=== PATIENT | female | born 1955 | race American Indian/Alaskan Native ===

== ENCOUNTER 2018-11-18 10:29 | Outpatient (CLI) | payer MEDICAID | END 2018-11-18 23:59 | disposition home or self-care (01) | LOC: SSTAY O 10:29 | PROVIDERS: ATTEND Nurse Practitioner | DX: Z46.82 Encounter for fitting and adjustment of non-vascular catheter (principal) | CPT/HCPCS: 36569; 76937 ==

== ENCOUNTER 2018-12-24 15:47 | Inpatient (IN) | payer MEDICAID ==
[~2018-12-24] VITALS: Ht 160 cm; Wt 73.3 kg
[2018-12-24 16:41] LABS: BASOPHILS # (AUTO) 0.1 X10'3 (0-0.2); BASOPHILS % (AUTO) 0.7 % (0-1); EOSINOPHILS # (AUTO) 0.6 X10'3 (0-0.9); EOSINOPHILS % (AUTO) 3.4 % (0-6); HEMATOCRIT 27.1 % (35.0-45.0); HEMOGLOBIN 9.3 g/dl (12.0-16.0); LYMPHOCYTES # (AUTO) 2.6 X10'3 (1.1-4.8); LYMPHOCYTES % (AUTO) 15.1 % (21-51); MEAN CORPUSCULAR HEMOGLOBIN 27.8 PG (27.0-31.0); MEAN CORPUSCULAR HGB CONC 34.2 g/dL (33.0-36.5); MEAN CORPUSCULAR VOLUME 81.4 FL (78-98); MEAN PLATELET VOLUME 7.2 FL (7.4-10.4); MONOCYTES # (AUTO) 1.2 X10'3 (0-0.9); NEUTROPHILS # (AUTO) 12.6 X10'3 (1.8-7.7); NEUTROPHILS % (AUTO) 73.8 % (42-75); PLATELET COUNT 520 X10'3 (140-440); RED BLOOD COUNT 3.33 X10'6 (4.20-5.60); RED CELL DISTRIBUTION WIDTH 14.8 % (11.5-14.5)
[2018-12-24 16:51] LABS: ALANINE AMINOTRANSFERASE 15 U/L (12-78); ALBUMIN/GLOBULIN RATIO 0.7 (1.1-1.5); ALKALINE PHOSPHATASE 135 IU/L (46-116); ANION GAP 15 (8-16); ASPARTATE AMINO TRANSFERASE 11 U/L (10-37); BILIRUBIN,TOTAL 0.6 MG/DL (0.1-1.0); BLOOD UREA NITROGEN 50 MG/DL (7-18); BUN/CREATININE RATIO 24.6 (6.6-38.0); CALCIUM 8.8 MG/DL (8.5-10.1); CHLORIDE 104 MMOL/L (99-107); CREATININE 2.03 MG/DL (0.40-0.90); GLUCOSE 235 MG/DL (70-104); PARTIAL THROMBOPLASTIN TIME 27 SECONDS (22-32); POTASSIUM 4.5 MMOL/L (3.5-5.1); SODIUM 137 MMOL/L (135-145); TOTAL CARBON DIOXIDE 18.5 MMOL/L (24-32); TOTAL PROTEIN 7.1 G/DL (6.4-8.2); eGFR 25 ML/MIN
[2018-12-24 17:02] LABS: C-REACTIVE PROTEIN 2.08 MG/DL (0.0-0.5); MAGNESIUM 1.7 MG/DL (1.5-2.4)
[2018-12-24 17:10] LABS: VANCOMYCIN,TROUGH 40.2 UG/ML (6.0-14.0)
[2018-12-24] MEDS ORDERED: piperacillin/tazo 3.375gm/50ml 50 ML IV ONE (17:10)
[2018-12-24 17:40] LABS: CLARITY,URINE CLEAR (Clear); COLOR,URINE YELLOW (Yellow); GLUCOSE, URINE 100 mg/dl (Neg); KETONES,URINE NEGATIVE (Neg); LEUKOCYTE ESTERASE ,URINE NEGATIVE (Neg); NITRITES, URINE NEGATIVE (Neg); OCCULT BLOOD,URINE NEGATIVE (Neg); PH,URINE 5.5 (4.8-8.0); PROTEIN,URINE 30 mg/dl (Neg); UROBILINOGEN,URINE 0.2 E.U/dL (0.2-1.0)
[2018-12-24 17:41] LABS: UA COLLECTION TYPE CLN CATCH MIDSTREAM
[2018-12-24] MEDS ORDERED: ANAS1TAB PO (17:42)
[2018-12-24] MEDS ORDERED: LISI-600 PO (17:42)
[2018-12-24] MEDS ORDERED: INSU100V13 SQ (17:42)
[2018-12-24] MEDS ORDERED: INSU100V9 SQ (17:42)
[2018-12-24] MEDS ORDERED: NAPR220T67 PO (17:42)
[2018-12-24] MEDS ORDERED: AMLO10TA PO (17:42)
[2018-12-24] MEDS ORDERED: ATOR40TA72 PO (17:42)
[2018-12-24] MEDS ORDERED: CHLO25TA3 PO (17:42)
[2018-12-24] MEDS ORDERED: VANCOMYCIN (17:43)
[2018-12-24 17:48] LABS: AMORPHOUS URATES 1+
[2018-12-24 17:49] LABS: MUCUS STRANDS FEW /LPF (Neg); SQUAMOUS EPITHELIAL CELL,UR FEW /LPF (FEW)
[2018-12-24 17:52] LABS: BACTERIA,URINE FEW /HPF (Neg); RBC,URINE 0-2 /HPF (0-2); WBC,URINE 0-4 /HPF (0-4)
[2018-12-24] MEDS ORDERED: heparin 10,000 units/1 ML INJ IV ONE ×2 (18:00→18:05)
[2018-12-24] MEDS ORDERED: heparin 10,000 units/1 ML INJ IV PRN (18:00)
[2018-12-24] MEDS ORDERED: acetaminophen 650mg rectal suppository RC PRN (18:10)
[2018-12-24] MEDS: K and/or MAG REPLACEMENT MC SCH (18:10)
[2018-12-24] MEDS ORDERED: mag hydrox/Alum hydrox/simeth 30ml oral suspension PO PRN (18:10)
[2018-12-24] MEDS ORDERED: morphine 2 MG/ML inj. syringe IV PRN ×2 (18:10)
[2018-12-24] MEDS ORDERED: magnesium hydroxide 30ml (MOM) UD suspension PO PRN (18:10)
[2018-12-24] MEDS ORDERED: glucagon, human recombinant 1mg kit SUBCUT PRN (18:10)
[2018-12-24] MEDS ORDERED: dextrose 50%-water 50ml dispensing syringe IV PRN ×2 (18:10)
[2018-12-24] MEDS ORDERED: magnesium 4gm in 100ml NS 100 ML IV PRN (18:10)
[2018-12-24] MEDS ORDERED: magnesium 2GM in 50ml NS 50 ML IV PRN (18:10)
[2018-12-24] MEDS ORDERED: dextrose ORAL solution 15 GM/59 ML bottle PO PRN ×2 (18:10)
[2018-12-24] MEDS ORDERED: diphenhydrAMINE 50 mg/ml inj IV PRN (18:10)
[2018-12-24] MEDS ORDERED: potassium Cl 20 mEq SR tablet PO PRN ×2 (18:10)
[2018-12-24] MEDS ORDERED: magnesium Cl slow-release 64mg tablet PO PRN (18:10)
[2018-12-24] MEDS ORDERED: metoclopramide 5 mg/ml inj IV PRN (18:10)
[2018-12-24] MEDS ORDERED: bisacodyl 10mg suppository rectal RC PRN (18:10)
[2018-12-24] MEDS ORDERED: potassium CL 10mEq/100ml bag 100 ML IV PRN ×2 (18:10)
[2018-12-24] MEDS ORDERED: acetaminophen 325mg tablet PO PRN ×2 (18:10)
[2018-12-24] MEDS ORDERED: MESSAGE TO PHARMACY PO ONE (18:10)
[2018-12-24] MEDS: cefepime 2g/NS 100ml ADVANTAGE 100 ML IV SCH ×2 (18:43→21:12)
[2018-12-24] MEDS ORDERED: VANC1PLA9 IV (18:50)
[2018-12-24] MEDS: heparin 25,000 UNIT/250ml bag 250 ML IV SCH (19:09)
[2018-12-24] MEDS: sodium bicarbonate inj. 100 ML in sodium chloride 0.45% 1,000 ML IV SCH (19:46)
[2018-12-24 20:01] LABS: FERRITIN 163 NG/ML (8-252)
[2018-12-24 20:29] LABS: % IRON SATURATION 9 % (11-46); IRON 18 UG/DL (49-151); TOTAL IRON BINDING CAPACITY 199 UG/DL (259-388)
--- NOTE | 2018-12-24 20:49 | NUR ---
Patient in room . I have received report from JACQUI Sanchez RN and had the opportunity to ask questions and assume patient care.
[2018-12-24] MEDS: insulin glargine (Lantus) pen - multi-dose SQ SCH (21:00)
[2018-12-24] MEDS: HYDROcodone/acetaminophen 5mg/325mg tablet PO PRN (21:46)
[2018-12-24 22:00] VITALS: BP 167/72
[2018-12-24 22:27] LABS: PARTIAL THROMBOPLASTIN TIME 74 SECONDS (22-32)
[2018-12-25] VITALS (7 sets, daily range): BP systolic 131–183; BP diastolic 55–87
[2018-12-25] MEDS: HYDROcodone/acetaminophen 10/325mg tab PO PRN ×2 (01:46→17:33)
[2018-12-25] MEDS: temazepam 15mg capsule PO PRN (01:46)
[2018-12-25] MEDS: sodium bicarbonate inj. 100 ML in sodium chloride 0.45% 1,000 ML IV SCH ×2 (05:55→16:35)
--- NOTE | 2018-12-25 06:00 | NUR ---
Patient in room PCU 3012. I have received report from COLBY CRAWLEY and had the opportunity to ask questions and assume patient care.
--- NOTE | 2018-12-25 06:57 | NUR ---
Problems reprioritized. Patient report given, questions answered & plan of care reviewed with MISBAH Barrett.
[2018-12-25 07:03] LABS: BASOPHILS # (AUTO) 0.2 X10'3 (0-0.2); BASOPHILS % (AUTO) 1.3 % (0-1); EOSINOPHILS # (AUTO) 0.7 X10'3 (0-0.9); EOSINOPHILS % (AUTO) 5.1 % (0-6); HEMATOCRIT 24.8 % (35.0-45.0); HEMOGLOBIN 8.6 g/dl (12.0-16.0); LYMPHOCYTES # (AUTO) 2.7 X10'3 (1.1-4.8); LYMPHOCYTES % (AUTO) 18.9 % (21-51); MEAN CORPUSCULAR HEMOGLOBIN 27.5 PG (27.0-31.0); MEAN CORPUSCULAR HGB CONC 34.5 g/dL (33.0-36.5); MEAN CORPUSCULAR VOLUME 79.7 FL (78-98); MEAN PLATELET VOLUME 7.2 FL (7.4-10.4); MONOCYTES # (AUTO) 1.4 X10'3 (0-0.9); MONOCYTES % (AUTO) 9.8 % (2-12); NEUTROPHILS # (AUTO) 9.3 X10'3 (1.8-7.7); NEUTROPHILS % (AUTO) 64.9 % (42-75); PLATELET COUNT 494 X10'3 (140-440); RED BLOOD COUNT 3.12 X10'6 (4.20-5.60); RED CELL DISTRIBUTION WIDTH 14.9 % (11.5-14.5); WHITE BLOOD COUNT 14.3 X10'3 (4.5-11.0)
[2018-12-25 07:28] LABS: ALANINE AMINOTRANSFERASE 13 U/L (12-78); ALBUMIN 2.5 G/DL (3.4-5.0); ALBUMIN/GLOBULIN RATIO 0.6 (1.1-1.5); ALKALINE PHOSPHATASE 108 IU/L (46-116); ANION GAP 12 (8-16); ASPARTATE AMINO TRANSFERASE 10 U/L (10-37); BILIRUBIN,TOTAL 0.4 MG/DL (0.1-1.0); BLOOD UREA NITROGEN 42 MG/DL (7-18); BUN/CREATININE RATIO 22.6 (6.6-38.0); CALCIUM 8.2 MG/DL (8.5-10.1); CHLORIDE 108 MMOL/L (99-107); CHOL/HDL RATIO 3.4 (0.00-4.99); CHOLESTEROL 92 MG/DL (0-200); CREATININE 1.86 MG/DL (0.40-0.90); GLUCOSE 93 MG/DL (70-104); HDL CHOLESTEROL 27 MG/DL (35-60); LDL CHOLESTEROL 53 MG/DL (50-100); MAGNESIUM 1.6 MG/DL (1.5-2.4); PHOSPHORUS 3.4 MG/DL (2.3-4.5); POTASSIUM 3.9 MMOL/L (3.5-5.1); SODIUM 141 MMOL/L (135-145); TOTAL CARBON DIOXIDE 21.3 MMOL/L (24-32); TOTAL PROTEIN 6.5 G/DL (6.4-8.2); TRIGLYCERIDES 89 MG/DL (20-135); eGFR 27 ML/MIN
[2018-12-25] MEDS: K and/or MAG REPLACEMENT MC SCH (08:00)
[2018-12-25] MEDS ORDERED: chlorthalidone 25mg tablet PO SCH (08:00)
[2018-12-25] MEDS: atorvastatin 20mg tablet PO SCH (09:27)
[2018-12-25] MEDS: anastrozole 1 MG tablet PO SCH (09:28)
[2018-12-25] MEDS: amLODIPine 5mg tablet PO SCH (09:28)
[2018-12-25] MEDS: lisinopril 20mg tablet PO SCH (09:28)
[2018-12-25] MEDS: heparin 25,000 UNIT/250ml bag 250 ML IV SCH ×4 (10:40→22:09)
[2018-12-25] MEDS: cefepime 2g/NS 100ml ADVANTAGE 100 ML IV SCH ×2 (11:10→19:26)
[2018-12-25] MEDS: HYDROcodone/acetaminophen 5mg/325mg tablet PO PRN (11:18)
[2018-12-25] MEDS: vancomycin/NS 1 GM ADD-VANTAGE 250 ML X 1 DOSE IV SCH (11:57)
--- NOTE | 2018-12-25 14:08 | NUR ---
PAGER ID: [phone] MESSAGE: [id number], Arnold Rodriguez Phys. therapy wants an order for ortho off loading shoe to keep weight off right foot. May I put one in? Brandi [facility] [id number]
--- NOTE | 2018-12-25 14:48 | NUR ---
DM Consult: A1C 10.2. Pt admit w/ sepsis, R great toe osteomyelitis. Pt seen by RD for written/verbal DM ed w/ RD contact information provided. RD encouraged attending CDE Course. Pt reports ran out of insulin past few days since forgot to order and GLU at home ranges 260-300 if forgets to take short-acting. Pt declined verbal ed but was open to brief verbal review by RD. Pt was agreeable to double meats/eggs TIDWM; dietary notified. [facility] 12/24. Will continue to monitor. Rec: 1. continue carb controlled diet; double proteins TIDWM 2. wt per rx Addendum: 12/25/18 at [address] Amended: Links added.
--- NOTE | 2018-12-25 18:00 | NUR ---
Patient in room PCU 3012. I have received report from Nena CRAWLEY and had the opportunity to ask questions and assume patient care.
[2018-12-25] MEDS: insulin Lispro (HumaLOG) vial - multi-dose SQ SCH ×2 (19:24→21:24)
[2018-12-25] MEDS: lactobacillus rhamnosus 10,000 MMU CELLS/CAPSULE PO SCH (19:26)
[2018-12-25] MEDS ORDERED: atenolol 50mg tablet PO ONE (21:15)
[2018-12-25] MEDS: insulin glargine (Lantus) pen - multi-dose SQ SCH (21:25)
[2018-12-25] MEDS ORDERED: hydrALAZINE 20mg/ml inj. IV ONE (23:20)
--- NOTE | 2018-12-25 23:36 | NUR ---
183/74 (110) MD Benito notified, Hydralazine 5mg IV ONCE given. Patient is comfortable in bed and not symptomatic, will continue to monitor.
[2018-12-26 00:26] VITALS: BP 162/70
[2018-12-26] MEDS: HYDROcodone/acetaminophen 5mg/325mg tablet PO PRN ×4 (03:16→20:27)
--- NOTE | 2018-12-26 03:50 | NUR ---
PAIN Patient very stoic about pain, and very cautious about taking any pain medications. I talked to the patient about her pain options and will continue to monitor her right foot. [place] 5 was given once on my shift.
[2018-12-26 06:00] VITALS: BP 163/66
--- NOTE | 2018-12-26 06:00 | NUR ---
Patient in room PCU 3012. I have received report from MISBAH Stanley and had the opportunity to ask questions and assume patient care.
[2018-12-26 06:16] LABS: BASOPHILS # (AUTO) 0.2 X10'3 (0-0.2); BASOPHILS % (AUTO) 1.3 % (0-1); EOSINOPHILS # (AUTO) 0.4 X10'3 (0-0.9); EOSINOPHILS % (AUTO) 2.8 % (0-6); HEMATOCRIT 25.2 % (35.0-45.0); HEMOGLOBIN 8.7 g/dl (12.0-16.0); LYMPHOCYTES # (AUTO) 2.2 X10'3 (1.1-4.8); LYMPHOCYTES % (AUTO) 16.5 % (21-51); MEAN CORPUSCULAR HGB CONC 34.7 g/dL (33.0-36.5); MEAN CORPUSCULAR VOLUME 80.8 FL (78-98); MEAN PLATELET VOLUME 7.4 FL (7.4-10.4); MONOCYTES % (AUTO) 7.4 % (2-12); NEUTROPHILS # (AUTO) 9.6 X10'3 (1.8-7.7); PLATELET COUNT 495 X10'3 (140-440); RED BLOOD COUNT 3.12 X10'6 (4.20-5.60); RED CELL DISTRIBUTION WIDTH 14.9 % (11.5-14.5); WHITE BLOOD COUNT 13.4 X10'3 (4.5-11.0)
[2018-12-26 06:49] LABS: ALANINE AMINOTRANSFERASE 14 U/L (12-78); ALBUMIN 2.5 G/DL (3.4-5.0); ALBUMIN/GLOBULIN RATIO 0.6 (1.1-1.5); ALKALINE PHOSPHATASE 104 IU/L (46-116); ANION GAP 12 (8-16); ASPARTATE AMINO TRANSFERASE 11 U/L (10-37); BILIRUBIN,TOTAL 0.4 MG/DL (0.1-1.0); BLOOD UREA NITROGEN 31 MG/DL (7-18); BUN/CREATININE RATIO 18.9 (6.6-38.0); CALCIUM 8.4 MG/DL (8.5-10.1); CHLORIDE 106 MMOL/L (99-107); CREATININE 1.64 MG/DL (0.40-0.90); GLUCOSE 197 MG/DL (70-104); MAGNESIUM 1.6 MG/DL (1.5-2.4); PHOSPHORUS 3.1 MG/DL (2.3-4.5); POTASSIUM 3.5 MMOL/L (3.5-5.1); SODIUM 141 MMOL/L (135-145); TOTAL CARBON DIOXIDE 23.4 MMOL/L (24-32); TOTAL PROTEIN 6.7 G/DL (6.4-8.2); eGFR 32 ML/MIN
[2018-12-26] MEDS: K and/or MAG REPLACEMENT MC SCH (08:00)
[2018-12-26] MEDS: lactobacillus rhamnosus 10,000 MMU CELLS/CAPSULE PO SCH ×2 (08:09→19:34)
[2018-12-26] MEDS: cefepime 2g/NS 100ml ADVANTAGE 100 ML IV SCH ×2 (08:10→19:34)
[2018-12-26] MEDS: anastrozole 1 MG tablet PO SCH (08:17)
[2018-12-26] MEDS: atorvastatin 20mg tablet PO SCH (08:18)
[2018-12-26] MEDS: amLODIPine 5mg tablet PO SCH (08:19)
[2018-12-26] MEDS: lisinopril 20mg tablet PO SCH (08:20)
[2018-12-26] MEDS: atenolol 50mg tablet PO SCH (08:20)
[2018-12-26] MEDS: insulin Lispro (HumaLOG) vial - multi-dose SQ SCH ×3 (09:56→18:55)
[2018-12-26] MEDS: ondansetron/PF 4mg/2ml inj IV PRN (09:59)
[2018-12-26] MEDS: vancomycin/NS 1 GM ADD-VANTAGE 250 ML X 1 DOSE IV SCH (10:00)
[2018-12-26 11:00] VITALS: BP 144/62
[2018-12-26 15:00] VITALS: BP 117/70
[2018-12-26 16:51] LABS: PARTIAL THROMBOPLASTIN TIME 63 SECONDS (22-32)
--- NOTE | 2018-12-26 18:00 | NUR ---
Problems reprioritized. Patient report given, questions answered & plan of care reviewed with Alicia CRAWLEY.
--- NOTE | 2018-12-26 18:17 | NUR ---
Problems reprioritized. Patient report given, questions answered & plan of care reviewed with MISBAH Stanley.
[2018-12-26 19:00] VITALS: BP 158/61
[2018-12-26] MEDS ORDERED: sodium bicarbonate inj. 100 ML in sodium chloride 0.45% 1,000 ML IV SCH (19:00)
[2018-12-26] MEDS: normal saline 1000ml 1,000 ML IV SCH (22:36)
[2018-12-26] MEDS: insulin glargine (Lantus) pen - multi-dose SQ SCH (22:42)
[2018-12-26] MEDS: heparin 25,000 UNIT/250ml bag 250 ML IV SCH (22:59)
[2018-12-26 23:00] VITALS: BP 152/85
[2018-12-26] MEDS: diphenhydrAMINE 25mg capsule PO PRN (23:07)
[2018-12-27] VITALS (8 sets, daily range): BP systolic 137–180; BP diastolic 50–74
[2018-12-27] MEDS: HYDROcodone/acetaminophen 5mg/325mg tablet PO PRN ×2 (03:44→08:18)
[2018-12-27 06:04] LABS: BASOPHILS % (AUTO) 0.2 % (0-1); EOSINOPHILS # (AUTO) 0.6 X10'3 (0-0.9); EOSINOPHILS % (AUTO) 4.3 % (0-6); HEMATOCRIT 24.4 % (35.0-45.0); HEMOGLOBIN 8.3 g/dl (12.0-16.0); LYMPHOCYTES # (AUTO) 2.7 X10'3 (1.1-4.8); LYMPHOCYTES % (AUTO) 20.5 % (21-51); MEAN CORPUSCULAR HEMOGLOBIN 27.6 PG (27.0-31.0); MEAN CORPUSCULAR HGB CONC 34.1 g/dL (33.0-36.5); MEAN CORPUSCULAR VOLUME 80.7 FL (78-98); MEAN PLATELET VOLUME 7.6 FL (7.4-10.4); MONOCYTES # (AUTO) 1.1 X10'3 (0-0.9); MONOCYTES % (AUTO) 8.3 % (2-12); NEUTROPHILS # (AUTO) 8.7 X10'3 (1.8-7.7); NEUTROPHILS % (AUTO) 66.7 % (42-75); PLATELET COUNT 480 X10'3 (140-440); RED BLOOD COUNT 3.02 X10'6 (4.20-5.60); RED CELL DISTRIBUTION WIDTH 14.6 % (11.5-14.5)
--- NOTE | 2018-12-27 06:19 | NUR ---
Patient in room PCU 3012. I have received report from MISBAH Stanley and had the opportunity to ask questions and assume patient care. Pt sleeping. Heparin drip assessed. Will continue to monitor.
[2018-12-27 06:20] LABS: ALANINE AMINOTRANSFERASE 14 U/L (12-78); ALBUMIN 2.3 G/DL (3.4-5.0); ALBUMIN/GLOBULIN RATIO 0.6 (1.1-1.5); ALKALINE PHOSPHATASE 99 IU/L (46-116); ANION GAP 11 (8-16); ASPARTATE AMINO TRANSFERASE 11 U/L (10-37); BILIRUBIN,TOTAL 0.3 MG/DL (0.1-1.0); BLOOD UREA NITROGEN 27 MG/DL (7-18); CHLORIDE 106 MMOL/L (99-107); CREATININE 1.69 MG/DL (0.40-0.90); GLUCOSE 228 MG/DL (70-104); MAGNESIUM 1.6 MG/DL (1.5-2.4); PHOSPHORUS 2.4 MG/DL (2.3-4.5); POTASSIUM 3.4 MMOL/L (3.5-5.1); SODIUM 140 MMOL/L (135-145); TOTAL CARBON DIOXIDE 22.7 MMOL/L (24-32); TOTAL PROTEIN 6.4 G/DL (6.4-8.2); eGFR 30 ML/MIN
--- NOTE | 2018-12-27 06:45 | NUR ---
Problems reprioritized. Patient report given, questions answered & plan of care reviewed with Saloni RN.
[2018-12-27] MEDS: cefepime 2g/NS 100ml ADVANTAGE 100 ML IV SCH ×2 (08:13→20:14)
[2018-12-27] MEDS: normal saline 1000ml 1,000 ML IV SCH ×2 (08:13→17:50)
[2018-12-27] MEDS: lactobacillus rhamnosus 10,000 MMU CELLS/CAPSULE PO SCH ×2 (08:14→20:13)
[2018-12-27] MEDS: anastrozole 1 MG tablet PO SCH (08:14)
[2018-12-27] MEDS: atenolol 50mg tablet PO SCH (08:14)
[2018-12-27] MEDS: atorvastatin 20mg tablet PO SCH (08:15)
[2018-12-27] MEDS: lisinopril 20mg tablet PO SCH (08:15)
[2018-12-27] MEDS: K and/or MAG REPLACEMENT MC SCH (08:15)
[2018-12-27] MEDS: amLODIPine 5mg tablet PO SCH (08:15)
[2018-12-27] MEDS: insulin Lispro (HumaLOG) vial - multi-dose SQ SCH (08:50)
[2018-12-27] MEDS ORDERED: VANCOMYCIN LEVEL IV ONE (09:30)
[2018-12-27] MEDS: vancomycin/NS 1 GM ADD-VANTAGE 250 ML X 1 DOSE IV SCH (10:47)
--- NOTE | 2018-12-27 11:16 | NUR ---
Sent to Dr Garcia PAGER ID: [phone] MESSAGE: RE: Michael Emi [id number]. CRITICAL VALUE: Vanco trough 22.7. Stopped infusion. Please advise. -Saloni [phone]
--- NOTE | 2018-12-27 11:56 | NUR ---
Wrong number on board. Previous page did not send to Dr Garcia. Resent to Dr Garcia: PAGER ID: [phone] MESSAGE: RE: Emi Rodriguez [id number]. CRITICAL VALUE: Vanco trough 22.7. Stopped infusion. Please advise. Other questions as well. -Saloni [phone]
[2018-12-27] MEDS: HYDROcodone/acetaminophen 10/325mg tab PO PRN (12:45)
[2018-12-27] MEDS ORDERED: normal saline 1000ml 1,000 ML IV SCH (15:02)
[2018-12-27] MEDS ORDERED: LIDOcaine 1%/PF 5ML 10 MG/ML VIAL SQ ONE (15:05)
[2018-12-27] MEDS ORDERED: midazolam 2 mg/2 ml injection IV PRN (15:05)
[2018-12-27] MEDS ORDERED: fentaNYL/PF 50MCG/1 ML 2ML syringe IV PRN (15:05)
[2018-12-27] MEDS ORDERED: heparin 1,000 UNITS/NS 500ml 500 ML ONE ×2 (15:21→17:06)
[2018-12-27] MEDS ORDERED: midazolam 2 mg/2 ml injection ONE ×2 (15:21→17:05)
[2018-12-27] MEDS ORDERED: fentaNYL/PF 50MCG/1 ML 2ML syringe ONE ×2 (15:21→17:05)
[2018-12-27] MEDS ORDERED: iohexol 300mg/ml 100ml inj. ONE (15:21)
[2018-12-27] MEDS ORDERED: LIDOcaine 1%/PF 5ML 10 MG/ML VIAL ONE (15:21)
[2018-12-27] MEDS ORDERED: hydrALAZINE 20mg/ml inj. IV ONE (16:48)
--- NOTE | 2018-12-27 18:48 | NUR ---
I have received report from Keerthi CRAWLEY in IR and had the opportunity to ask questions and awaiting patient arrival to unit.
--- NOTE | 2018-12-27 19:00 | NUR ---
PT arrived to unit via ICU bed. PT is a/o. VSS, On RA and tolerating well, O2 sat >95%. Sheath to LT groin, site is CDI with no signs of hematoma. Sheath is transduced to pressure tubing and line has been zeroed. PT has PICC to ARASH and 20g PIV to LLA. NS and Heparin gtt infusing to PICC. PT has bilat doppler dorsalis pedis and post tibial pulses. Bilat LE are warm. Bed is locked and low. Call light is within reach. Will continue to monitor.
[2018-12-27] MEDS: ondansetron/PF 4mg/2ml inj IV PRN (19:32)
--- NOTE | 2018-12-27 19:40 | NUR ---
PT has an episode of emesis. PRN Zofran given. Will continue to monitor.
[2018-12-27] MEDS: heparin 25,000 UNIT/250ml bag 250 ML IV SCH (21:43)
[2018-12-27] MEDS: insulin glargine (Lantus) pen - multi-dose SQ SCH (21:48)
--- NOTE | 2018-12-27 23:00 | NUR ---
PT resting with no s/s of distress noted at this time. VSS. Bed is locked and low. Call light is within reach. Will continue to monitor.
[2018-12-28] VITALS (19 sets, daily range): BP systolic 136–169; BP diastolic 47–70
[2018-12-28] MEDS: normal saline 1000ml 1,000 ML IV SCH ×3 (00:25→22:32)
[2018-12-28] MEDS: temazepam 15mg capsule PO PRN ×2 (00:31→21:59)
[2018-12-28 01:56] LABS: BASOPHILS # (AUTO) 0.2 X10'3 (0-0.2); BASOPHILS % (AUTO) 1.3 % (0-1); EOSINOPHILS # (AUTO) 0.2 X10'3 (0-0.9); EOSINOPHILS % (AUTO) 1.5 % (0-6); LYMPHOCYTES # (AUTO) 1.8 X10'3 (1.1-4.8); LYMPHOCYTES % (AUTO) 14.9 % (21-51); MEAN CORPUSCULAR HEMOGLOBIN 27.2 PG (27.0-31.0); MEAN CORPUSCULAR HGB CONC 33.5 g/dL (33.0-36.5); MEAN CORPUSCULAR VOLUME 81.1 FL (78-98); MEAN PLATELET VOLUME 7.2 FL (7.4-10.4); MONOCYTES # (AUTO) 0.9 X10'3 (0-0.9); MONOCYTES % (AUTO) 7.2 % (2-12); NEUTROPHILS # (AUTO) 9.3 X10'3 (1.8-7.7); NEUTROPHILS % (AUTO) 75.1 % (42-75); PLATELET COUNT 468 X10'3 (140-440); RED BLOOD COUNT 2.96 X10'6 (4.20-5.60); RED CELL DISTRIBUTION WIDTH 14.6 % (11.5-14.5); WHITE BLOOD COUNT 12.4 X10'3 (4.5-11.0)
[2018-12-28 02:06] LABS: ALANINE AMINOTRANSFERASE 14 U/L (12-78); ALBUMIN 2.2 G/DL (3.4-5.0); ALBUMIN/GLOBULIN RATIO 0.6 (1.1-1.5); ALKALINE PHOSPHATASE 92 IU/L (46-116); ANION GAP 13 (8-16); ASPARTATE AMINO TRANSFERASE 11 U/L (10-37); BILIRUBIN,TOTAL 0.3 MG/DL (0.1-1.0); BLOOD UREA NITROGEN 30 MG/DL (7-18); CALCIUM 7.5 MG/DL (8.5-10.1); CHLORIDE 107 MMOL/L (99-107); CREATININE 1.58 MG/DL (0.40-0.90); GLUCOSE 225 MG/DL (70-104); MAGNESIUM 1.6 MG/DL (1.5-2.4); PHOSPHORUS 2.6 MG/DL (2.3-4.5); POTASSIUM 3.6 MMOL/L (3.5-5.1); SODIUM 140 MMOL/L (135-145); TOTAL CARBON DIOXIDE 19.8 MMOL/L (24-32); TOTAL PROTEIN 6.1 G/DL (6.4-8.2); eGFR 33 ML/MIN
--- NOTE | 2018-12-28 03:00 | NUR ---
PT continues to rest with no s/s of distress noted at this time. VSS. Bed is locked and low. Call light is within reach. Will continue to monitor.
[2018-12-28] MEDS: ondansetron/PF 4mg/2ml inj IV PRN ×2 (05:24→13:02)
[2018-12-28] MEDS: HYDROcodone/acetaminophen 10/325mg tab PO PRN ×3 (05:28→17:22)
--- NOTE | 2018-12-28 06:38 | NUR ---
Problems reprioritized. Patient report given, questions answered & plan of care reviewed with Jess CRAWLEY.
--- NOTE | 2018-12-28 07:39 | NUR ---
Call from Dr Betancourt stating that Dr Miller seen patient and said foot looked good and to remove IR sheath. Call placed to ICU Nursing staff and informed them to Stop Heparin and remove IR sheath per Protocol
[2018-12-28] MEDS: amLODIPine 5mg tablet PO SCH (07:56)
[2018-12-28] MEDS: atorvastatin 20mg tablet PO SCH (07:56)
[2018-12-28] MEDS: lactobacillus rhamnosus 10,000 MMU CELLS/CAPSULE PO SCH ×2 (07:57→19:34)
[2018-12-28] MEDS: anastrozole 1 MG tablet PO SCH (07:57)
[2018-12-28] MEDS: cefepime 2g/NS 100ml ADVANTAGE 100 ML IV SCH (07:57)
[2018-12-28] MEDS: lisinopril 20mg tablet PO SCH (07:57)
[2018-12-28] MEDS: atenolol 50mg tablet PO SCH (07:57)
[2018-12-28] MEDS: K and/or MAG REPLACEMENT MC SCH (08:00)
[2018-12-28] MEDS: insulin Lispro (HumaLOG) vial - multi-dose SQ SCH ×4 (08:31→21:59)
[2018-12-28] MEDS: vancomycin inj. 750 MG in normal saline 250ml IV soln 250 ML IV SCH (10:11)
--- NOTE | 2018-12-28 13:17 | NUR ---
Sheath removed at 1100 without complications. Manual pressure held for 20 minutes. Dsg applied. Pt has no complaints of excess pain. All VSS. PA at bedside to assess pulses. BLE doppler pulses heard
--- NOTE | 2018-12-28 17:17 | NUR ---
Problems reprioritized. Patient report given, questions answered & plan of care reviewed with Fiorella agile developer.
--- NOTE | 2018-12-28 17:41 | NUR ---
Pt transferred with all belongings. Tele placed. Pt alert, oriented and stable for transfer. Assisted pt into wheelchair without difficulty and transferred to bed with minimum assistance. Receiving RN at bedside
--- NOTE | 2018-12-28 18:27 | NUR ---
Problems reprioritized. Patient report given, questions answered & plan of care reviewed with MISBAH KUMAR.
--- NOTE | 2018-12-28 18:28 | NUR ---
[employer] vendor representatives: I have reviewed and agree with all interventions, assessments performed and documented by MISBAH QUILES.
--- NOTE | 2018-12-28 18:35 | NUR ---
Patient in room PCU 3013. I have received report from quiana Barros RN and Timothy RN and had the opportunity to ask questions and assume patient care.
[2018-12-28] MEDS: ciprofloxacin 250mg tablet PO SCH (19:36)
[2018-12-28] MEDS: metroNIDAZOLE 500mg tablet PO SCH (19:37)
[2018-12-28] MEDS: diphenhydrAMINE 25mg capsule PO PRN (19:37)
[2018-12-28] MEDS: insulin glargine (Lantus) pen - multi-dose SQ SCH (21:56)
[2018-12-29] MEDS: HYDROcodone/acetaminophen 5mg/325mg tablet PO PRN ×2 (00:02→04:07)
[2018-12-29 02:00] VITALS: BP 154/56
[2018-12-29 06:06] LABS: ALANINE AMINOTRANSFERASE 16 U/L (12-78); ALBUMIN 2.3 G/DL (3.4-5.0); ALBUMIN/GLOBULIN RATIO 0.6 (1.1-1.5); ALKALINE PHOSPHATASE 88 IU/L (46-116); ANION GAP 11 (8-16); ASPARTATE AMINO TRANSFERASE 15 U/L (10-37); BILIRUBIN,TOTAL 0.3 MG/DL (0.1-1.0); BLOOD UREA NITROGEN 23 MG/DL (7-18); BUN/CREATININE RATIO 14.2 (6.6-38.0); CALCIUM 7.6 MG/DL (8.5-10.1); CHLORIDE 108 MMOL/L (99-107); CREATININE 1.62 MG/DL (0.40-0.90); GLUCOSE 148 MG/DL (70-104); MAGNESIUM 1.6 MG/DL (1.5-2.4); POTASSIUM 3.3 MMOL/L (3.5-5.1); SODIUM 141 MMOL/L (135-145); TOTAL CARBON DIOXIDE 22.1 MMOL/L (24-32); TOTAL PROTEIN 6.1 G/DL (6.4-8.2); eGFR 32 ML/MIN
--- NOTE | 2018-12-29 06:16 | NUR ---
Problems reprioritized. Patient report given, questions answered & plan of care reviewed with Sarah Haley/Fiorella RN.
--- NOTE | 2018-12-29 06:30 | NUR ---
Patient in room PCU 3013. I have received report from MISBAH Liao and had the opportunity to ask questions and assume patient care.
--- NOTE | 2018-12-29 06:31 | NUR ---
Patient in room PCU 3013. I have received report from MISBAH Liao and had the opportunity to ask questions and assume patient care.
[2018-12-29 06:47] VITALS: BP 169/68
[2018-12-29] MEDS: K and/or MAG REPLACEMENT MC SCH (08:00)
[2018-12-29] MEDS: metroNIDAZOLE 500mg tablet PO SCH (08:23)
[2018-12-29] MEDS: lactobacillus rhamnosus 10,000 MMU CELLS/CAPSULE PO SCH (08:23)
[2018-12-29] MEDS: atorvastatin 20mg tablet PO SCH (08:23)
[2018-12-29] MEDS: amLODIPine 5mg tablet PO SCH (08:30)
[2018-12-29] MEDS: lisinopril 20mg tablet PO SCH (08:30)
[2018-12-29] MEDS: atenolol 50mg tablet PO SCH (08:30)
[2018-12-29] MEDS: insulin Lispro (HumaLOG) vial - multi-dose SQ SCH (08:51)
[2018-12-29] MEDS: normal saline 1000ml 1,000 ML IV SCH (09:01)
[2018-12-29] MEDS: vancomycin inj. 750 MG in normal saline 250ml IV soln 250 ML IV SCH (10:24)
[2018-12-29] MEDS: ciprofloxacin 250mg tablet PO SCH (10:24)
--- NOTE | 2018-12-29 10:46 | NUR ---
Suraj Gonzalez regarding electrolyte replacement protocol PAGER ID: [phone] MESSAGE: [id number] - Styir: Ok to use potassium replacement protocol? - MISBAH Barros ext [phone] Addendum: 12/29/18 at 1208 by Fiorella Julian RN Incorrect pager number. Suraj Gonzalez with updated number. Addendum: 12/29/18 at 1208 by Fiorella Julian RN Incorrect pager number. suraj gonzalez with correct number
[2018-12-29 11:00] VITALS: BP 176/73
[2018-12-29 11:50] VITALS: BP 200/87
[2018-12-29] MEDS: anastrozole 1 MG tablet PO SCH (11:52)
--- NOTE | 2018-12-29 12:03 | NUR ---
Paged Dr. Garcia regarding pts elevated BP of 200/87 PAGER ID: [phone] MESSAGE: [id number] - Styir: Pts BP is 200/87, kindly advise. Thank you! - MISBAH Barros ext [phone]
--- NOTE | 2018-12-29 12:08 | NUR ---
Paged Dr. Garcia regarding pts elevated BP at 200/87. PAGER ID: [phone] MESSAGE: [id number] - Styir: Pts BP is 200/87, kindly advise. Thank you! - MISBAH Barros ext [phone]
--- NOTE | 2018-12-29 12:15 | NUR ---
Dr. Garcia at bedside. Orders received to start electrolyte replacement protocol & to start clonidine 0.1mg PO BID, 1st dose now.
[2018-12-29] MEDS ORDERED: potassium CL 10mEq/100ml bag 100 ML IV PRN (12:25)
[2018-12-29] MEDS ORDERED: magnesium Cl slow-release 64mg tablet PO PRN (12:25)
[2018-12-29] MEDS ORDERED: potassium Cl 20 mEq SR tablet PO PRN ×2 (12:25)
[2018-12-29] MEDS ORDERED: magnesium 4gm in 100ml NS 100 ML IV PRN (12:25)
[2018-12-29] MEDS ORDERED: cloNIDine 0.1 mg tablet PO SCH (12:25)
[2018-12-29] MEDS ORDERED: magnesium 2GM in 50ml NS 50 ML IV PRN (12:25)
--- NOTE | 2018-12-29 13:24 | NUR ---
Paged Dr. Garcia re pt leaving AMA. PAGER ID: [phone] MESSAGE: Pt Emi Rodriguez in [phone] leaving AMA. Form signed. Thanks! Sarah [phone] Addendum: 12/29/18 at 1435 by Gilda Holt RN Dr. Garcia telephoned back re pt leaving AMA.
[2018-12-31] MEDS ORDERED: VANCOMYCIN LEVEL IV ONE (09:30)
== END 2018-12-29 14:04 | disposition left against medical advice (07) | DRG 710 ==
LOC: ER 15:47 → PCU 3S 21:20 → CICU 2S 12-27 19:13 → PCU 3S 12-28 17:37
PROVIDERS: ADMIT Family Medicine; ATTEND Family Medicine
PROC: 047M3Z1 Dilation of Right Popliteal Artery using Drug-Coated Balloon, Percutaneous Approach (ICD-10-PCS; principal; 2018-12-27)
PROC: 047P3ZZ Dilation of Right Anterior Tibial Artery, Percutaneous Approach (ICD-10-PCS; 2018-12-27)
PROC: B41G1ZZ Fluoroscopy of Left Lower Extremity Arteries using Low Osmolar Contrast (ICD-10-PCS; 2018-12-27)
PROC: B41F1ZZ Fluoroscopy of Right Lower Extremity Arteries using Low Osmolar Contrast (ICD-10-PCS; 2018-12-27)
DX: A41.9 Sepsis, unspecified organism (principal); E87.2 Acidosis; E11.22 Type 2 diabetes mellitus with diabetic chronic kidney disease; E44.0 Moderate protein-calorie malnutrition; E11.40 Type 2 diabetes mellitus with diabetic neuropathy, unspecified; M86.171 Other acute osteomyelitis, right ankle and foot; B35.1 Tinea unguium; E11.319 Type 2 diabetes mellitus with unspecified diabetic retinopathy without macular edema; E11.69 Type 2 diabetes mellitus with other specified complication; B96.5 Pseudomonas (aeruginosa) (mallei) (pseudomallei) as the cause of diseases classified elsewhere; E11.51 Type 2 diabetes mellitus with diabetic peripheral angiopathy without gangrene; E11.621 Type 2 diabetes mellitus with foot ulcer; E11.628 Type 2 diabetes mellitus with other skin complications; N18.9 Chronic kidney disease, unspecified; I12.9 Hypertensive chronic kidney disease with stage 1 through stage 4 chronic kidney disease, or unspecified chronic kidney disease; E78.5 Hyperlipidemia, unspecified; Z53.21 Procedure and treatment not carried out due to patient leaving prior to being seen by health care provider; B95.2 Enterococcus as the cause of diseases classified elsewhere; B95.61 Methicillin susceptible Staphylococcus aureus infection as the cause of diseases classified elsewhere; D64.9 Anemia, unspecified; I70.209 Unspecified atherosclerosis of native arteries of extremities, unspecified extremity; L97.519 Non-pressure chronic ulcer of other part of right foot with unspecified severity; Z79.811 Long term (current) use of aromatase inhibitors; Z79.899 Other long term (current) drug therapy; Z79.4 Long term (current) use of insulin; Z83.3 Family history of diabetes mellitus; Z85.3 Personal history of malignant neoplasm of breast; Z91.14 Patient's other noncompliance with medication regimen; Z91.19 Patient's noncompliance with other medical treatment and regimen; Z95.820 Peripheral vascular angioplasty status with implants and grafts; Z92.21 Personal history of antineoplastic chemotherapy; Z68.33 Body mass index [BMI] 33.0-33.9, adult
CPT/HCPCS: 36415; 37229; 71045; 73620; 80053; 80061; 80202; 81001; 82728; 82948; 83036; 83540; 83550; 83605; 83735; 84100; 84145; 85025; 85347; 85610; 85651; 85730; 86140; 87040; 87070; 87075; 87081; 87186; 93005; 93306; 93922; 93926; 93971; 96365; 96375; 97110; 97112; 97116; 97161; 97530; 99152; 99153; 99285; C1725; C1757; C1769; C1884; C1887; C1894; C2623; G0378; J0360; J0692; J1644; J1815; J2250; J2405; J2543; J3010; J3370; J3490; J7030; J7050; Q0163; Q9967

== ENCOUNTER 2019-01-03 11:58 | Emergency (ER) | payer MEDICAID ==
[~2019-01-03] VITALS: Ht 157.5 cm; Wt 81.8 kg
[~2019-01-03 11:58] MED LIST: AMLO10TA PO; ANAS1TAB PO; ATOR40TA72 PO; CHLO25TA3 PO; INSU100V13 SQ; INSU100V9 SQ; LISI-600 PO; NAPR220T67 PO; VANC1PLA9 IV
[2019-01-03 12:16] VITALS: BP 178/91
--- NOTE | 2019-01-03 12:48 | NUR ---
pt redressing to rgt great toe done ,simple dressing tapped on as per providers orders,pt comfortable put the socks on no drainage noted to the dressing site dry and intact.pt waiting for the provider for her d/c paperwork and about the descision to remove picc line or not?
== END 2019-01-03 12:56 | disposition home or self-care (01) ==
LOC: ER 11:59
DX: E11.621 Type 2 diabetes mellitus with foot ulcer (principal); L97.518 Non-pressure chronic ulcer of other part of right foot with other specified severity; Z79.4 Long term (current) use of insulin; Z79.899 Other long term (current) drug therapy
CPT/HCPCS: 99282